=== PATIENT | female | born 1995 | race American Indian/Alaskan Native ===

== ENCOUNTER 2017-10-13 22:28 | Emergency (ER) | payer OTHER ==
[2017-10-13 23:25] VITALS: BMI 21.4
--- NOTE | 2017-10-13 23:51 | ED PDOC ---
Arrival/HPI <TeaAlec - Last Filed: 10/14/17 02:49> - History of Present Illness Time/Duration: 4-6 hours Symptom Onset: Sudden Symptom Course: Unchanged Quality: Cramping Activities at Onset: Rest <Bruce Ayoub - Last Filed: 10/14/17 05:15> - General Chief Complaint: Female Genitourinary Time Seen by Provider: 10/13/17 22:30 - History of Present Illness Narrative History of Present Illness (Text): Patient is a 21 year old at 26 weeks who presents with abdominal and vaginal cramping. She reports having sudden onset cramping pains in her lower abdomen, vagina, rectum, and lower back that have persisted since 6pm this evening. Nothing makes the cramping better or worse and she has not taken anything for pain. She has never had cramping like this before. She also has a burning sensation with urination. Patient denies any vaginal discharge or blood, no changes in the color of her urine. She has been nauseous, but has not vomited. She denies any diarrhea, constipation, bloody stools or dark tarry stools. The patient denies smoking, drug use, or history of STDs. She is visiting from [place] and follows with child custody evaluator in [place] Dr. Cancino. 10/13/17 23:42 (Bruce Ayoub) Past Medical History - Provider Review Nursing Documentation Reviewed: Yes - Psychiatric Hx Substance Use: No <Bruce Ayoub - Last Filed: 10/14/17 05:15> Family/Social History - Physician Review Nursing Documentation Reviewed: Yes Family/Social History: No Known Family HX Smoking Status: Never Smoked Hx Alcohol Use: No Hx Substance Use: No <Bruce Ayoub - Last Filed: 10/14/17 05:15> Allergies/Home Meds <TeaAlec - Last Filed: 10/14/17 02:49> <Bruce Ayoub - Last Filed: 10/14/17 05:15> Allergies/Adverse Reactions: Allergies No Known Allergies Allergy (Verified 10/13/17 23:26) Home Medications: Home Meds Medication Instructions Recorded Confirmed No Known Home Med 10/13/17 10/13/17 Review of Systems - Review of Systems Constitutional: Normal. absent: Fatigue, Fevers Eyes: Normal. absent: Vision Changes, Photophobia ENT: Normal. absent: Sore Throat, Rhinorrhea Respiratory: Normal. absent: SOB, Cough Cardiovascular: Normal. absent: Chest Pain, Palpitations Gastrointestinal: Abdominal Pain, Nausea. absent: Stool Changes, Constipation, Diarrhea, Vomiting, Hematochezia, Food Intolerance Genitourinary Female: Dysuria. absent: Frequency, Hematuria, Vaginal Bleeding, Vaginal Discharge Musculoskeletal: Back Pain. absent: Neck Pain, Joint Swelling Skin: absent: Rash, Pruritis Neurological: Normal. absent: Headache, Dizziness <Bruce Ayoub - Last Filed: 10/14/17 05:15> Physical Exam Vital Signs Reviewed: Yes Temperature: Afebrile Blood Pressure: Normal Pulse: Regular Respiratory Rate: Normal Appearance: Positive for: Uncomfortable Pain Distress: Mild Mental Status: Positive for: Alert and Oriented X 3 - Systems Exam Head: Present: Atraumatic, Normocephalic Pupils: Present: PERRL Extroacular Muscles: Present: EOMI Conjunctiva: Present: Normal Mouth: Present: Moist Mucous Membranes Pharnyx: Present: Normal. No: ERYTHEMA, EXUDATE Nose (External): Present: Atraumatic Neck: Present: Normal Range of Motion. No: JVD Respiratory/Chest: Present: Clear to Auscultation, Good Air Exchange. No: Respiratory Distress, Accessory Muscle Use Cardiovascular: Present: Regular Rate and Rhythm, Normal S1, S2. No: Murmurs Abdomen: Present: Tenderness (+tender to palpation along lower abdomen), Normal Bowel Sounds, Scars (+Vertical incisional scar, reports history cholecystectomy) , Other (+Gravid abdomen; ). No: Peritoneal Signs, Rebound, Guarding Back: Present: Normal Inspection. No: CVA Tenderness Upper Extremity: Present: Normal Inspection. No: Cyanosis, Edema Lower Extremity: Present: Normal Inspection, NORMAL PULSES. No: Edema Neurological: Present: GCS=15, CN II-XII Intact, Speech Normal Skin: Present: Warm, Dry, Normal Color. No: Rashes Psychiatric: Present: Alert, Oriented x 3, Normal Insight <Bruce Ayoub - Last Filed: 10/14/17 05:15> Vital Signs Temp Pulse Resp BP Pulse Ox 10/14/17 02:50 98.2 F 78 18 113/73 100 10/14/17 01:13 82 16 113/64 100 10/13/17 23:15 98 F 85 16 114/64 99 Medical Decision Making <Alec Metcalf - Last Filed: 10/14/17 02:49> <Bruce Ayoub - Last Filed: 10/14/17 05:15> ED Course and Treatment: Impression: Pt seen and evaluated with medical communication specialist. Aware and agree with HPI, clinical findings, plan, and management. Pt, P:0, currently 26 weeks , presented for abdominal cramping since 18:00 and dysuria. Plan: -- Labs, beta-HCG, lipase -- Urinalysis -- Reassess and disposition 10/14/17 01:[address] Mays 10/14/17 02:14 Case discussed with GUIDO Moise recreation officer, who is aware and agrees with plan. Accepts pt on transfer to [facility]. Based upon the information available at the time of transfer, the medical benefits reasonably expected from the provision of medical treatment at [facility] outweigh the increased risk to the patient for transfer from this facility. I have described the inherent risks and benefits of the transfer to the patient, and patient agrees to transfer. I have spoken to GUIDO Beck, who has agreed to accept transfer of the patient and provide further medical treatment at the receiving facility. At the time of transfer, copies of all medical records sent which related to the emergency condition for which the individual presented. These records include observations of signs or symptoms, preliminary clinical impression, treatment provided, results of any completed test and an informed written consent to the transfer. (Alec Metcalf) 10/13/17 23:59 Abdominal pain in second trimester - DDx spontaneous , infection, abruption, uterine rupture, premature labor * CBC w dif * CMP * Lipase * age US * Possible transfer for inpatient OB care 10/14/17 00:06 Pt transferred to [facility] for inpatient OB care, accepted by Dr. Mays (Bruce Ayoub) - Lab Interpretations Narrative Lab Interpretation (Text): 10/14/17 05:13 CBC, CMP show no acute lab abnormalities UA positive for trace proteinuria and leukocyte esterace and moderate blood (Bruce Ayoub) Lab Results: 10/14/17 00:05 10/14/17 00:05 Lab Results 10/14/17 00:05: Beta HCG, Quant 99298.00 H 10/14/17 00:05: Sodium 138, Potassium 4.1, Chloride 104, Carbon Dioxide 26, Anion Gap 12, BUN 10, Creatinine 0.8, Est GFR ( Amer) > 60, Est GFR (Non- Af Amer) > 60, Random Glucose 89, Calcium 9.5, Total Bilirubin 0.2, AST 15, ALT 20, Alkaline Phosphatase 58, Total Protein 6.9, Albumin 3.8, Globulin 3.0, Albumin/Globulin Ratio 1.2, Lipase 62 10/14/17 00:05: Urine Color Yellow, Urine Appearance Sl cloudy, Urine pH 7.5, Ur Specific [place] 1.015, Urine Protein Trace H, Urine Glucose (UA) Negative, Urine Ketones Negative, Urine Blood Moderate H, Urine Nitrate Negative, Urine Bilirubin Negative, Urine Urobilinogen 0.2, Ur Leukocyte Esterase Trace H, Urine RBC 2 - 5, Urine WBC 0 - 2, Ur Epithelial Cells 0 - 2, Urine Bacteria Mod 10/14/17 00:05: WBC 10.8, RBC 3.60, Hgb 10.7 L, Hct 31.8 L, MCV 88.3, MCH 29.7, MCHC 33.6, RDW 13.3, Plt Count 182, MPV 9.7, Gran % 57.3, Lymph % (Auto) 31.0, [place] % (Auto) 8.7 H, Eos % (Auto) 2.5, Baso % (Auto) 0.5, Gran # 6.21, Lymph # ( Auto) 3.4, [place] # (Auto) 0.9 H, Eos # (Auto) 0.3, Baso # (Auto) 0.05 - RAD Interpretation Radiology Orders: 10/14/17 00:27 AGE [US] Stat Disposition/Present on Arrival - Present on Arrival Any Indicators Present on Arrival: No - Disposition Have Diagnosis and Disposition been Completed?: Yes Disposition Time: 02:49 <Alec Metcalf - Last Filed: 10/14/17 02:49> - Present on Arrival Any Indicators Present on Arrival: No History of DVT/PE: No History of Uncontrolled Diabetes: No Urinary Catheter: No History of Decub. Ulcer: No History Surgical Site Infection Following: None <Bruce Ayoub - Last Filed: 10/14/17 05:15> - Disposition Diagnosis: Abdominal pain, Third trimester Disposition: Transfer [facility] Forms: [facility] (Tristanian)
[2017-10-14 00:12] LABS: BASO # 0.05 K/mm3 (0.0-2.0); BASO % 0.5 % (0.0-3.0); EOS # 0.3 (0.0-0.7); EOS % 2.5 % (1.5-5.0); GRAN # 6.21 (1.4-6.5); GRAN % 57.3 % (50.0-68.0); HEMOGLOBIN 10.7 g/dL (12.0-16.0); LYMPH # 3.4 (1.2-3.4); MEAN CELL VOLUME 88.3 fl (80.0-105.0); MEAN CORPUSCULAR HEMOGLOBIN 29.7 pg (25.0-35.0); MEAN CORPUSCULAR HGB CONC 33.6 g/dl (31.0-37.0); MEAN PLATELET VOLUME 9.7 fl (7.0-11.0); MONO # 0.9 (0.1-0.6); MONO % 8.7 % (1.0-6.0); RBC 3.6 10^6/uL (3.5-6.1); RED CELL DISTRIBUTION WIDTH 13.3 % (11.5-14.5); WHITE BLOOD COUNT 10.8 10^3/ul (4.5-11.0)
[2017-10-14 00:14] LABS: PH,URINE 7.5 (4.7-8.0); URINE BILIRUBIN NEGATIVE (NEGATIVE); URINE BLOOD MODERATE (NEGATIVE); URINE COLOR YELLOW (YELLOW); URINE GLUCOSE (UA) NEGATIVE (NEGATIVE); URINE LEUKOCYTE ESTERASE TRACE Leu/uL (NEGATIVE); URINE PROTEIN TRACE mg/dL (<30 mg/dL); URINE UROBILINOGEN 0.2 E.U./dL (<1 E.U./dL)
[2017-10-14 00:15] LABS: URINE APPEARANCE SL CLOUDY (CLEAR)
[2017-10-14 00:22] LABS: ALB/GLOB RATIO 1.2 (1.1-1.8); ALBUMIN 3.8 g/dL (3.0-4.8); ALT/SGPT 20 U/L (7-56); AST/SGOT 15 U/L (14-36); BLOOD UREA NITROGEN 10 mg/dL (7-21); CALCIUM 9.5 mg/dL (8.4-10.5); GFR AFRICAN-AMERICAN > 60; GFR NON-AFRICAN AMERICAN > 60; LIPASE 62 U/L (23-300)
[2017-10-14 00:34] LABS: URINE EPITHELIAL CELLS 0 - 2 /hpf (0-5); URINE WBC 0 - 2 /hpf (0-6)
[2017-10-14 00:35] LABS: URINE BACTERIA MOD (NEG)
[2017-10-14 01:13] VITALS: O2SAT 100
[2017-10-14 03:03] VITALS: BP 113/73; PULSE 78; RESP 18; TEMP 98.2
--- NOTE | 2017-10-14 16:21 | US ---
Date of service: 10/14/2017 PROCEDURE: OB Pelvic Ultrasound HISTORY: pain COMPARISON: None available. FINDINGS: UTERUS: Placenta: Fundal Presentation: Cephalic BPD: 6.7 cm compatible with estimated gestational age 27 weeks, 1 day HC: 24.9 cm compatible with estimated gestational age 27 weeks, 0 days AC: 22.7 cm compatible with estimated gestational age of 27 weeks, 1 day FL: 5.0 cm compatible with estimated gestational age of 26 weeks, 6 days ROSHAN: 15.3 cm EFW: 1017 grams 153 grams (2 pounds 4 ounces 5 ounces) Heart rate: 178 bpm. age (Ultrasound estimated): 27 weeks, 0 days Nubia-gestational hemorrhage: None. Date of delivery (Ultrasound estimated) : 01/13/2018 CERVIX: Measures 4.1 cm. Long and closed. No cervical abnormality seen. RIGHT OVARY: Not visualized LEFT OVARY: Not visualized FREE FLUID: None. OTHER FINDINGS: None. IMPRESSION: Single live intrauterine gestation with average ultrasound age of 27 weeks, 0 days. heart rate 170 beats per minute. Cervix long and closed.
== END 2017-10-14 02:54 | disposition short-term general hospital (02) ==
LOC: ED 22:28
DX: O26.892 Other specified pregnancy related conditions, second trimester (principal); R10.9 Unspecified abdominal pain; Z3A.27 27 weeks gestation of pregnancy